=== PATIENT | female | born 1940 | race Caucasian/White ===

== ENCOUNTER 2022-03-26 05:06 | Observation (INO) ==
--- NOTE | 2022-02-22 08:47 | PAT Medication Instructions ---
Medication Instructions Date of Service February 22, 2022 Home Medications Neurvia 1 dose PO DAILY allopurinol 300 mg tablet 300 mg PO QAM amitriptyline 50 mg tablet 50 mg PO HS cholecalciferol (vitamin D3) 50 mcg (2,000 unit) tablet (Vitamin D3) 1,000 unit PO DAILY empagliflozin 10 mg tablet (Jardiance) 10 mg PO QAM furosemide 40 mg tablet (Lasix) 40 mg PO DIRECTED magnesium 250 mg tablet 250 mg PO DAILY metoprolol succinate 50 mg tablet,extended release 24 hr (Toprol XL) 50 mg PO QDD omega 9-imh-zoq-fish oil 100 mg-160 mg-1,000 mg capsule (Fish Oil) cap PO DAILY pilocarpine HCl 5 mg tablet (Salagen (pilocarpine)) 5 mg PO TID potassium chloride 10 mEq capsule,extended release 10 meq PO BID tramadol 50 mg tablet 50 mg PO QAM turmeric 400 mg capsule 400 mg PO DAILY zinc acetate 50 mg (zinc) capsule 50 mg PO DAILY ASK your prescriber and surgeon amitriptyline 50 mg tablet 50 mg PO HS STOP taking 2 weeks before surgery (or as soon as possible if surgery is within 2 weeks) Neurvia 1 dose PO DAILY omega 5-ynf-hrf-fish oil 100 mg-160 mg-1,000 mg capsule (Fish Oil) cap PO DAILY turmeric 400 mg capsule 400 mg PO DAILY STOP taking 3 days before surgery empagliflozin 10 mg tablet (Jardiance) 10 mg PO QAM STOP taking 24 hours before surgery pilocarpine HCl 5 mg tablet (Salagen (pilocarpine)) 5 mg PO TID DO NOT take the morning of surgery cholecalciferol (vitamin D3) 50 mcg (2,000 unit) tablet (Vitamin D3) 1,000 unit PO DAILY furosemide 40 mg tablet (Lasix) 40 mg PO DIRECTED magnesium 250 mg tablet 250 mg PO DAILY potassium chloride 10 mEq capsule,extended release 10 meq PO BID zinc acetate 50 mg (zinc) capsule 50 mg PO DAILY Take morning of surgery With a small sip of water, OTHERWISE NOTHING TO EAT OR DRINK AFTER MIDNIGHT: allopurinol 300 mg tablet 300 mg PO QAM tramadol 50 mg tablet 50 mg PO QAM Take evening before surgery metoprolol succinate 50 mg tablet,extended release 24 hr (Toprol XL) 50 mg PO QDD potassium chloride 10 mEq capsule,extended release 10 meq PO BID Other Notes If you have any questions please call us at [phone] or [phone] or [phone] or [phone]
--- NOTE | 2022-02-28 13:31 | Anesthesiology Consultation ---
Date of Service February 28, 2022 Assessment & Plan (1) Encounter for pre-operative examination: - awaiting cardiology clearance. - will attempt to obtain most recent pacemaker check report. - pacemaker [employer]. - Patient concerns for worsened neuropathy of legs, hands and left arm: general vs neuraxial anesthesia discussed with pt. She prefers planned neuraxial anesthesia given cardiac history and recent dental work. Pt states surgeon's office is aware of dental work. She denied additional questions or concerns at PAT visit today, plans to further discuss with anesthesiologist rosa HUITRON. She was advised to further follow-up with surgeon's office regarding any additional questions or concerns regarding the surgery itself. She verbalized understanding and agreement, denied additional questions or concerns. - limb restriction: right arm restriction d/t partial mastectomy; pt also experiences 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 d/t previous surgical complications; Do not use right arm. - cardiology 12/10/21: "...heart failure...dual chamber pacemaker...hypertension...underwent a heart catheterization 12/07/21 that showed normal hemodynamics and filling pressures with angiographically normal coronary arteries...only able to exercise for 2 minutes...nondiagnostic...not had any appreciable changes in her symptoms with the addition of the Jardiance...stable renal function and electrolytes...continue to have dyspnea with minimal exertion, improved with rest not present with rest...intermittently have sweats at times...stage C, NYHA III...will refer to pulmonology for further evaluation...pacemaker, continue routine interrogations..." Pt made aware optimization note will be sent to cardiology office for clearance. She denied questions or concerns. - Outpatient joint assessment: Patient is currently scheduled for inpatient pathway. If re-evaluated pending system levels during current pandemic/surgeon requests outpatient pathway, patient is not acceptable candidate for outpatient joint program from anesthesia standpoint. Chart Review Chart Review: Pending: Refer to Additional Notes / Consult section and Patient seen in Pre Admission Testing Teaching & Discussion Pre-Anesthesia Teaching/Discussion Notes: Instructed NPO after midnight before surgery, except medications with 15 cc of water. Medication instructions provided according to the PAT guidelines. History Surgery Operation Date: 03/26/22 07:00 Proposed Procedures p Right Total Knee Arthroplasty - Nioxn Lange MD Height/Weight Height: 5 ft 6.5 in Weight: 79.4 kg Allergies Allergy/AdvReac Type Severity Reaction Status Date / Time adhesive tape Allergy Intermediate Rash Verified 02/21/22 14:38 gabapentin Allergy Intermediate Gastrointestinal Verified 02/21/22 14:38 Upset Medications Home Medications Medication Instructions Recorded Confirmed Last Taken Neurvia 1 dose PO DAILY 02/21/22 02/21/22 Unknown allopurinol 300 mg tablet 300 mg PO QAM 02/21/22 02/21/22 Unknown amitriptyline 50 mg tablet 50 mg PO HS 02/21/22 02/21/22 Unknown cholecalciferol (vitamin D3) 50 1,000 unit PO DAILY 02/21/22 02/21/22 Unknown mcg (2,000 unit) tablet (Vitamin D3) empagliflozin 10 mg tablet 10 mg PO QAM 02/21/22 02/21/22 Unknown (Jardiance) furosemide 40 mg tablet (Lasix) 40 mg PO DIRECTED 02/21/22 02/21/22 Unknown magnesium 250 mg tablet 250 mg PO DAILY 02/21/22 02/21/22 Unknown metoprolol succinate 50 mg 50 mg PO QDD 02/21/22 02/21/22 Unknown tablet,extended release 24 hr (Toprol XL) omega 0-quh-rij-fish oil 100 cap PO DAILY 02/21/22 Unknown mg-160 mg-1,000 mg capsule (Fish Oil) pilocarpine HCl 5 mg tablet 5 mg PO TID 02/21/22 02/21/22 Unknown (Salagen (pilocarpine)) potassium chloride 10 mEq 10 meq PO BID 02/21/22 02/21/22 Unknown capsule,extended release tramadol 50 mg tablet 50 mg PO QAM 02/21/22 02/21/22 Unknown turmeric 400 mg capsule 400 mg PO DAILY 02/21/22 02/21/22 Unknown zinc acetate 50 mg (zinc) capsule 50 mg PO DAILY 02/21/22 02/21/22 Unknown Past Medical History Medical History (Updated 02/28/22 @ 14:01 by Lori Reed PA-C) CHF (congestive heart failure) EF 44%, following with [facility] cardiology, stage C, NYHA III GERD (gastroesophageal reflux disease) infrequent, stable per pt Gout HX: breast cancer right 2010 > surgical intervention > chemo/radiation-right arm limb restriction Hypertension controlled, stable per pt Limb alert care status right arm restriction d/t partial mastectomy; pt also experiences 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 d/t previous surgical complications; Do not use right arm Nausea and vomiting after administration of anesthetic agent denies needing scop patch Neuropathy hands and arms bilat, feet and legs Pacemaker pt states it was placed for "low blood pressure" Spritz > last checked within past 2 months Presence of bilateral breast implant Pulmonary nodules stable per recent CT lung Patient denies h/o stroke, seizures, heart attack, DM, blood clots or blood tra nsfusions. Exercise / Class Metabolic Activity III < 4 Walking/Shop/Light housework (currently using electric chair for stairs; occasional chest discomfort and occasional shortness of breath with usual activities; denies change or worsening; she states cardiology is aware of both symptoms) Past Family History Family History Sister Diabetes Brother Diabetes Past Surgical History Surgical History (Updated 02/28/22 @ 13:43 by Lori Reed PA-C) History of cardiac cath [facility] > approx 2 mos ago > no stents History of cataract surgery bilat History of colonoscopy History of esophagogastroduodenoscopy (EGD) History of hysterectomy History of partial mastectomy of right breast right arm restriction d/t partial mastectomy; pt also experiences 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 d/t previous surgical complications; Do not use right arm History of tooth extraction Hx of lymph node excision right side Hx of surgical procedure 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 Patient denies chest pain, shortness of breath, dyspnea on exertion, fever, chills, cough, wheezing, or palpitations. Physical Exam Vital Signs Vitals BP 106/80 P 90 TEMP 97.7 SP02 95% on RA RESP 18 Physical Full cervical extension range of motion without pain TMD 3.5 finger breadths Mallampati Score 2 Dentition: intact, three implants upper front with current temporary teeth in place and lower front veneers; denies chipped or loose teeth Lungs: normal respiratory effort. Clear throughout to auscultation, no adventitious breath sounds Cardiac: regular rate and rhythm, no murmurs noted Carotid arteries: negative bruit bilat Lab Results Anesthesia Preop Results Results Anesthesia Widget: WBC 5.52 K/ul (4.8-10.8) 02/28/22 Hgb 15.6 g/dl (12.0-16.0) 02/28/22 Hct 47.0 % (34.1-44.9) H 02/28/22 Plt 193 K/uL (130-400) 02/28/22 Na 140 mmol/L (136-145) 02/28/22 K 3.6 mmol/L (3.5-5.1) 02/28/22 Cl 99 mmol/L (98-107) 02/28/22 CO2 34 mmol/L (21-32) H 02/28/22 BUN 22 mg/dl (6-23) 02/28/22 Creat 0.90 mg/dl (0.6-1.2) 02/28/22 Glucose Level 160 mg/dl (70-99(Fasting)) H 02/28/22 PT 10.4 Seconds (9.0-12.0) 02/28/22 PTT 27.8 Seconds (21.0-31.0) 02/28/22 INR 1.0 (0.9-1.1) 02/28/22 Urine Color Yellow 02/28/22 Urine Appearance Clear (Clear) 02/28/22 Urine pH 6.0 (4.5-7.5) 02/28/22 Urine Specific [place] 1.014 (1.000-1.030) 02/28/22 Urine Protein Negative (Negative) 02/28/22 Urine Glucose (UA) 3+ (Negative) H 02/28/22 Urine Ketones Negative (Negative) 02/28/22 Urine Blood Negative (Negative) 02/28/22 Urine Nitrite Negative (Negative) 02/28/22 Urine Bilirubin Negative (Negative) 02/28/22 Urine Urobilinogen Negative (Negative) 02/28/22 Urine Leukocyte Esterase Negative (Negative) 02/28/22 Blood Type O Positive 02/28/22 Antibody Screen NEGATIVE 02/28/22 Testing Electrocardiogram Date: 02/28/22 Ventricular paced rhythm, rate 87 bpm Chest X-Ray Date: 02/28/22 No prior studies are available for comparison at the time of dictation. A 2-lead cardiac pacemaker is unchanged in position and partially obscures the left mid chest. The heart is enlarged. The pulmonary vasculature is noncongested. Nonspecific interstitial thickening is likely chronic. The lungs and pleural spaces are clear noting bibasilar scarring/atelectasis. There is no pneumothorax. The skeletal structures are osteopenic. The bony thorax appears intact. Surgical clips are noted in the right axilla. IMPRESSION: 1. Cardiomegaly and cardiac pacemaker without radiographic evidence of congestive failure. 2. No airspace consolidation or pleural effusion is identified. Stress Test Date: 11/19/21 Pharmacologic Moderate anterior, apical infarction, subsequent normal cardiac cath 12/07/21, see below EF 44% Cardiac Catheterization Date: 12/07/21 Left main: angiographically normal LAD: angiographically normal Cx: angiographically normal RCA: angiographically normal Other Testing CT lung 11/26/21 Stable small right lung nodules and axillary lymph nodes. No acute findings in the chest. COVID-19 Risk Screen Screening Information COVID-19 Screen Date: 02/28/22 Exposure 21 Days Family/Household +COVID Last 21 Days: No Exposure 10 Days Any COVID Exposure Last 10 Days: No Symptoms Last 10 Days Experienced COVID Sx Last 10 Days: No + COVID 0-90 Days COVID + in Last 0-90 Days: No
[2022-03-26] MEDS ORDERED: TRANEXAMIC ACID 1,000 MG **IV Intra-op IV SCH (06:00)
[2022-03-26] MEDS ORDERED: TRANEXAMIC ACID 1,000 MG **IV Pre-op IV SCH (06:00)
[2022-03-26] MEDS ORDERED: LR 500ML BOLUS, THEN 15ML/HR IV SCH (06:00)
[2022-03-26] MEDS ORDERED: LR 60ML/HR IV SCH (06:00)
[2022-03-26] MEDS ORDERED: CeleBREX 200 MG CAP PO SCH (06:00)
[2022-03-26] MEDS ORDERED: ROPIVACAINE 0.5% HCL/PF 150 MG, BUPIVACAINE 0.75% MPF 20 ML, EPINEPHrine 0.15 MG, Ketor... INFIL SCH (06:00)
[2022-03-26] MEDS ORDERED: Scopolamine 1 MG TDSY TD SCH (06:00)
[2022-03-26] MEDS ORDERED: ceFAZolin 2000MG 2,000 MG/15 ML SYR IV SCH (06:00)
[2022-03-26] MEDS ORDERED: ROPIVACAINE 0.5% 5 MG/ML 30 ML VIAL ONE (06:16)
[2022-03-26] MEDS ORDERED: BUPIVACAINE 0.5 % 5 MG/1 ML PF 10ML VIAL ONE (06:16)
[2022-03-26] MEDS ORDERED: LIDOCAINE 2% MPF LOCAL 5 ML VIAL INFIL ONE (06:25)
[2022-03-26] MEDS ORDERED: MIDAZOLAM HCL 1 MG/ML 2ML VIAL ONE (06:25)
[2022-03-26] MEDS ORDERED: PROPOFOL IV EMULSION 10 MG/ML 20 ML VIAL IV ONE ×3 (06:25→10:21)
--- NOTE | 2022-03-26 06:37 | History & Physical Bridge Note ---
Date of Service March 26, 2022 History & Physical Bridge Note I have examined the patient, reviewed the History & Physical and in the interval since the performance of the History & Physical I have noted the following changes of clinical significance: no changes noted Patient is aware of the risks, is asymptomatic, and tested negative for COVID- 19.
[2022-03-26] MEDS ORDERED: fentaNYL citrate 100 MCG/2 ML VIAL IV PRN (07:02)
[2022-03-26] MEDS ORDERED: ONDANSETRON INJ 2 MG/ML 2 ML VIAL IV PRN ×2 (07:02→10:45)
[2022-03-26] MEDS ORDERED: ePHEDrine sulfate 50 MG/ML AMP IV PRN (07:02)
[2022-03-26] MEDS ORDERED: ATROPINE SULFATE 0.1 MG/ML 10ML SYR IV PRN (07:02)
[2022-03-26] MEDS ORDERED: ORTHO JOINT ANESTHETIC ONE (07:11)
[2022-03-26] MEDS ORDERED: DEXAMETHASONE SOD INJ 4 MG/ML VIAL ONE (07:26)
--- NOTE | 2022-03-26 09:18 | Post Operative Brief Note ---
Immediate Post Op Note v1 Date of Surgery March 26, 2022 Pre & Post Diagnosis Operation Date: 03/26/22 07:00 Pre-Op Diagnosis: Right Knee Osteoarthritis Post-Op Diagnosis: Right Knee Osteoarthritis I identified the patient and participated in the time-out.: Yes Procedure Operation Date: 03/26/22 07:00 Actual Procedures p Right Total Knee Arthroplasty(Right) - Nixon Lange MD Surgeon Nixon Lange MD Manager Category Cristobal Moise PA-C (No fellow avail) Estimated Blood Loss 120 Findings Consistent with Post-Op Diagnosis Fluids 1200 cc Specimens Right knee contents Anesthesia Type MAC Spinal Regional Complications none
--- NOTE | 2022-03-26 09:19 | Operative Report ---
Post Operative Report Pre & Post Diagnosis Operation Date: 03/26/22 07:00 Pre-Op Diagnosis: Right Knee Osteoarthritis, valgus deformity Post-Op Diagnosis: Right Knee Osteoarthritis, valgus deformity I identified the patient and participated in the time-out.: Yes Procedure Operation Date: 03/26/22 07:00 Actual Procedures p Right Total knee replacement, imageless computer assisted navigation - Nixon Lange MD Surgeon Nixon Lange MD Derrick Worker Cristobal Moies PA-C (No fellow avail) Estimated Blood Loss 120 Findings See Below Examined Under Anesthesia: ROM -- There was 15 degrees to 120 degrees of flexion Ligamentous examination -- revealed stable [place], posterior drawer, varus and valgus stress at 15 and 30 degrees. [place] grade IV changes of Lateral and patellofemoral compartments, grade III changes Medial compartment. Fluids 1200 cc Specimens Right knee contents Anesthesia Type MAC Spinal Regional Complications none Indications This is a 82-year-old female who has clinical and radiographic findings consistent with osteoarthritis of the a right knee. I recommended that a right total knee replacement be performed. The patient understands the risks of surgery, which include but not limited to: bleeding, infection, re-operation, damage to nerves and arteries, continued knee pain, knee stiffness, DVT, and . The patient understands all of these instructions and explanations, all of his questions have been satisfactorily addressed and the patient has elected to proceed. Informed consent was signed. Description of Procedure IMPLANTS: 1. Femur: Triathlon #5 Right PS. 2. Tibia: Triathlon #4 [place]. 3. Insert: Triathlon #4 x 9 mm PS X3 poly. 4. Patella: Triathlon A32 x 10 mm X3 poly. 5. [place] cement. Cristobal Moise PA-C is assisting with positioning, retracting, and closure due to fellow not available. Procedure: The patient was taken to the Operating Room and placed in the supine position after spinal and adductor canal nerve block was administered. My initials and a multidisciplinary time-out were used to identify the right leg as the correct operative limb. A tourniquet was placed high in the thigh. Prior to the incision, 2 grams of intravenous Ancef were given. The right leg was then prepped and draped in a standard sterile fashion. An Esmarch was used to exsanguinate the leg and the tourniquet was inflated to 250 mmHg. The planned mid-line 20 cm incision was created exposing the extensor mechanism. The medial parapatellar arthrotomy was made and the patella was everted. The patella was addressed first. It was prepared by reaming from 24 mm down to 13 mm. An A32 button was found to fit best. The peg holes were made in the standard fashion. The femur was addressed next and using computer assisted OrthoAlign with 3 degrees of flexion and 0.5 degrees of valgus (As she was in 7 degrees of valgus pre-op), removing 10 mm in the standard fashion for the distal cut. The cut was made and the 4-in-1 cutting block for a size 5 femur was placed. These cuts and the cuts to place the box were made in the standard fashion. Our attention was then drawn to the tibia cut with using imageless computer assisted OrthoAlign, taking 2 mm from the lateral low side. A #4 Tibial baseplate fit well. A trial with a 9 mm spacer showed excellent stability in both flexion and extension, with good ligament balance, and thumbs free patellar tracking. Range of motion of 0-130 degrees. The tibial baseplate was prepped for the keel and stem. All components were removed. All surfaces were copiously irrigated prior to placement of the components. The femoral component followed by Tibial baseplate were cemented in place and the 9 mm X3 poly was placed. Next, the patellar button was placed using the same cement. Once the cement had cured, the range of motion and stability were unchanged.The tourniquet was deflated. Hemostasis was obtained. 90 ml of total knee cocktail were injected into the soft tissues and periosteum. The extensor mechanism was closed with 1-0 Vicryl and 0 Stratafix with the knee bent approximately 60 degrees in a standard fashion. The peritenon and deep fascia was closed with 2-0 Vicryl. The subcutaneous layer was closed with 3-0 Vicryl. The skin was closed with kenny. The limb was cleaned and dried. Xeroform, 4x4 dressing was placed over top followed by ABDs, sterile Webril, and a foot to thigh Jonathan bandage. The patient was then transferred to the Recovery Room in stable condition. The sponge and needle counts were correct. POST-OP INSTRUCTIONS: The patient will be WBAT. The patient will be admitted to the hospital. Labs will be obtained during the stay. DVT prophylaxis will included Eliquis for 6 weeks, TEDs, and mechanical foot pumps. The dressing will be changed prior to their discharge or postop day #2 and covered with a Silverlon dressing, whichever comes first as long as the incision as dry. I attest to the content of the Intraoperative Record and any orders documented therein. Any exceptions are noted below.
--- NOTE | 2022-03-26 09:29 | Operative Report ---
Post Operative Report Pre & Post Diagnosis Operation Date: 03/26/22 07:00 Pre-Op Diagnosis: Right Knee Osteoarthritis Post-Op Diagnosis: Right Knee Osteoarthritis I identified the patient and participated in the time-out.: Yes Procedure Operation Date: 03/26/22 07:00 Actual Procedures p Right Total Knee Arthroplasty(Right) - Nixon Lange MD Surgeon Nixon Lange M.D. Chart Picker Cristobal Moise PA-C (No fellow avail) Estimated Blood Loss 120 Findings Consistent with Post-Op Diagnosis Specimens bone and soft tissue Anesthesia Type MAC Spinal Regional Description of Procedure Patient was taken to the operating room, placed under general anesthesia. Time out performed, prepped and draped in routine sterile fashion. She was given 2gm IV Ancef for surgical prophylaxis. I was present during the entire case, please see Dr. Lange's operative report for further detail. I assisted with positioning, tissue retraction, trialing and implantation of implants, closure and dressings. Patient was awakened and taken to the recovery room in stable condition. I attest to the content of the Intraoperative Record and any orders documented therein. Any exceptions are noted below.
--- NOTE | 2022-03-26 10:12 | Anesthesiology Progress Note ---
Date of Service March 26, 2022 Anesthesia Post Procedure Vital Signs Vital Signs: Temp Pulse Pulse Resp BP Pulse Ox O2 Del Method 03/26/22 10:05 97.2 F L 64 20 126/75 94 Room Air 03/26/22 09:55 69 17 130/66 95 Room Air 03/26/22 09:45 71 18 127/68 94 Room Air 03/26/22 09:35 68 16 122/69 94 Room Air 03/26/22 09:26 96.8 F L 70 16 123/65 96 Oxymask 03/26/22 05:38 98.1 F 84 20 161/84 H 97 Room Air O2 Flow Rate 03/26/22 10:05 03/26/22 09:55 03/26/22 09:45 03/26/22 09:35 03/26/22 09:26 4 03/26/22 05:38 Transfer of Care Handoff Completed per policy Notes Mental Status: alert / awake / arousable and participated in evaluation Patient Amnestic to Procedure: Yes Nausea / Vomiting: adequately controlled Pain: adequately controlled Airway Patency, RR, SpO2: stable & adequate BP & HR: stable & adequate Hydration State: stable & adequate Neuraxial Anesthesia: was administered and sensory block is resolving Anesthetic Complications: no major complications apparent and Pt Satisfied with anesthetic care
[2022-03-26] MEDS ORDERED: MAGNESIUM HYDROXIDE SUSP 30 ML UDC PO PRN (10:45)
[2022-03-26] MEDS ORDERED: HYDROmorphone INJ 0.5 MG/0.5 ML SYR IV PRN (10:45)
[2022-03-26] MEDS ORDERED: NALOXONE HCL 0.4 MG/1 ML VIAL/CARP IV PRN (10:45)
[2022-03-26] MEDS ORDERED: traMADol HCL 50 MG TABLET PO PRN (10:45)
[2022-03-26] MEDS ORDERED: bisacodyL 10 MG SUPP PR PRN (10:45)
[2022-03-26] MEDS ORDERED: SODIUM CHLORIDE 0.9% 1000ML 1,000 ML IV SCH (10:45)
--- NOTE | 2022-03-26 10:47 | XRay Report ---
XR knee RT 1 or 2V routine HISTORY: 82 years-old Female Surgical Post Op right knee arthroplasty COMPARISON: 01/21/2022 TECHNIQUE: 2 views the right knee FINDINGS: Total joint arthroplasty with patellar resurfacing. Anterior midline skin kenny are present along w ith expected postoperative soft tissue swelling with deep tissue air. IMPRESSION: Total joint arthroplasty with expected postoperative changes. ACT 112: Negative or not required by law. The above report was generated using voice recognition software. It may contain grammatical, syntax o r spelling errors. Electronically signed by: Teddy Atkinson M.D. 03/26/2022 10:46 AM
--- NOTE | 2022-03-26 11:21 | Hospitalist Consultation ---
Date of Consultation March 26, 2022 Assessment & Plan (1) Osteoarthritis of left knee: s/p Right Total Knee Arthroplasty(Right) - Nixon Lange MD. EBL 120cc. Pain control/antitemetics, bowel regimen per primary service Ancef migdalia-operative abx Per primary, using eliquis 2.5mg BID for DVT prophylaxis (per patient, no prior hx DVT/PE) Decadron 8mg given, additional dose for tomorrow AM ordered If develops any shortness of breath/increased edema, will need dose of lasix as missed last night and not given this morning however asymptomatic. Agree NO further IVF. Monitor daily weight/I&O given her weight slightly up from dry Monitor labs in AM (2) CHF (congestive heart failure): EF 44%, following with [facility] cardiology, stage C, NYHA III Typically on lasix 80mg QAM, 40mgQPM, metoprolol 50mg, Jardiance 10mg daily (NO HX DM REPORTED) She states she DID NOT take dose last night and did not get this morning Lasix 40mg PO to be resumed for this evening Weight ~176, stated dry weight had been closer to 171lb in the past but has been stable in 175lb range over past month As above, additional diuretic only if needed, regular meds to be resumed this evening but is asymptomatic at this time and can hold off. Would avoid additional IVF post-op past what was already given. 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 Hospitalist service will follow along in AM Supervising Physician Co-Signing Physician Notes I personally saw and examined the patient. I verified all webber points and agree with Crissy Thomas PA-C with the following exceptions and/or additions: 82 year old female POD #0 right TKA. Pain increasingly post operatively as block is wearing off. Advised for her to discuss pain management with her surgeons if not under control. Appears to be NV intact distal to operation site. No shortness of breath, chest pain or dizziness O/E HS RRR, no murmurs, no JVD, Chest CTAB, Abdo SNT, trace pedal edema A/P Pain/VTE/Bowel management per surgery Appears euvolemic regarding CHF at the present time. Agree with no post op IV fluids and resuming her usual Lasix at this time since she has missed two doses I am more concerned about developing CHF than post operative hypotension at this time. Otherwise as above. History of Present Illness Reason for Consultation: med management Requesting Physician: Dr Lange Attending Physician: Nixon Lange MD History of Present Illness 82yo female with PMHx significant for HFpEF, HTN, HLD, Breast Ca, pacemaker, presented for RIGHT TKA with Dr Lange. Evaluated in room 306 post-op, doing well. States has some weakness in her RLE from nerve block, just got up from surgery. She notes she is able to still feel pressure, to alert of any issues. She notes she follows with [facility] in [place], hx pacemaker as well. Had not been utilizing much but notes she is about 90% pacer dependent currently. Typically on lasix 80mg QAM and 40mg QPM. She notes she did not take her dose last night as she didn't want to be up to pee and she didn't get her dose this morning. She notes her usual dry weight is closer to 171lb but over the past month with parties/birthday she has been closer to 175lb this month. She states her typical symptoms w/ exacerbation are shortness of breath and and cant breath with increased swelling. Currently 96-97% on room air and denying any of those symptoms. Discussed to alert nursing if these occur and we can use dose of lasix as needed sooner but waiting post-op. No additional fluids currently hanging and agree with such. She does have a history of breast cancer over 11 years ago s/p treatment. NEVER had DVT/PE. Primary service utilizing low dose eliquis for DVT prophylaxis. No fever/chills, chest pain, shortness of breath, abdominal pain, nausea, vomiting or dysuria reported. Allergies Allergy/AdvReac Type Severity Reaction Status Date / Time adhesive tape Allergy Intermediate Rash Verified 03/26/22 05:41 gabapentin Allergy Intermediate Gastrointestinal Verified 03/26/22 05:41 Upset Home Medications Medication Instructions Recorded Confirmed Type Neurvia 1 dose PO DAILY 02/21/22 03/26/22 History allopurinol 300 mg tablet 300 mg PO QAM 02/21/22 03/26/22 History amitriptyline 50 mg tablet 50 mg PO HS 02/21/22 03/26/22 History cholecalciferol (vitamin D3) 50 1,000 unit PO DAILY 02/21/22 03/26/22 History mcg (2,000 unit) tablet (Vitamin D3) empagliflozin 10 mg tablet 10 mg PO QAM 02/21/22 03/26/22 History (Jardiance) furosemide 40 mg tablet (Lasix) 40 mg PO DIRECTED 02/21/22 03/26/22 History magnesium 250 mg tablet 250 mg PO DAILY 02/21/22 03/26/22 History metoprolol succinate 50 mg 50 mg PO QDD 02/21/22 03/26/22 History tablet,extended release 24 hr (Toprol XL) omega 2-xga-qik-fish oil 100 1 cap PO DAILY 02/21/22 03/26/22 History mg-160 mg-1,000 mg capsule (Fish Oil) pilocarpine HCl 5 mg tablet 5 mg PO TID 02/21/22 03/26/22 History (Salagen (pilocarpine)) potassium chloride 10 mEq 10 meq PO BID 02/21/22 03/26/22 History capsule,extended release tramadol 50 mg tablet 50 mg PO QAM 02/21/22 03/26/22 History turmeric 400 mg capsule 400 mg PO DAILY 02/21/22 03/26/22 History zinc acetate 50 mg (zinc) capsule 50 mg PO DAILY 02/21/22 03/26/22 History Patient History Medical History CHF (congestive heart failure) EF 44%, following with [facility] cardiology, stage C, NYHA III GERD (gastroesophageal reflux disease) infrequent, stable per pt Gout HX: breast cancer right 2010 > surgical intervention > chemo/radiation-right arm limb restriction Hypertension controlled, stable per pt Limb alert care status right arm restriction d/t partial mastectomy; pt also experiences 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 d/t previous surgical complications; Do not use right arm Nausea and vomiting after administration of anesthetic agent denies needing scop patch Neuropathy hands and arms bilat, feet and legs Pacemaker pt states it was placed for "low blood pressure" Haload > last checked within past 2 months Presence of bilateral breast implant Pulmonary nodules stable per recent CT lung Surgical History History of cardiac cath [facility] [place] > approx 2 mos ago > no stents History of cataract surgery bilat History of colonoscopy History of esophagogastroduodenoscopy (EGD) History of hysterectomy History of partial mastectomy of right breast right arm restriction d/t partial mastectomy; pt also experiences 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 d/t previous surgical complications; Do not use right arm History of tooth extraction Hx of lymph node excision right side Hx of surgical procedure 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, benign, had severe nerve damage, had to get a follow up surgery for the nerves at [facility] Family History Sister Diabetes Brother Diabetes Social History Smoking Status: Never smoker Second Hand Exposure: No; Do You Dip or Chew Tobacco: No; Tobacco Cessation Education Requested by Patient: No Hx Alcohol Use: No Hx Substance Use: No Preferred Language: Slovak Communication Ability: Effective Manager Cardiac Required: No Beliefs That Will Affect Care: None Current Living Situation: Significant Other Other Information That Helps Us Care for You: No Feels Safe at Home: Yes Safety Concerns: Feels Safe At This Time Assistive Devices: Glasses Assistive Devices Comment: dental implants > temporary teeth in mouth on top Physical Exam Physical Exam: General: WD/WN elderly female sitting up in bed post op, NAD, fiance and daughter at bedside HEENT: head normocephalic, atraumatic, mmm, trachea midline Resp: CTAB, slightly diminished in the bases, FAINT expiratory wheezing no crackles and 96% on ROOM AIR Chest: pacemaker present CV: RRR, S1/S2, no significant murmur, NO increased LE edema, pulses palpable GI: +BS, soft/NT : NO NOVAK MSK/Neuro: follows commands no facial droop/slurred speech, CN intact grossly, dressing to RLE with CINDY wrap, weakness from nerve block still in place, sensation to pressure intact Psych: AOx3, pleasant and cooperative Results & Data Results & Data ([facility]) Vital Signs (Past 12 Hours) Vital Signs Temp Pulse Pulse Resp BP Pulse Ox O2 Del Method 03/26/22 11:05 36.6 C 63 16 128/74 96 Room Air 03/26/22 10:05 36.2 C L 64 20 126/75 94 Room Air 03/26/22 09:55 69 17 130/66 95 Room Air 03/26/22 09:45 71 18 127/68 94 Room Air 03/26/22 09:35 68 16 122/69 94 Room Air 03/26/22 09:26 36.0 C L 70 16 123/65 96 Oxymask 03/26/22 05:38 36.7 C 84 20 161/84 H 97 Room Air O2 Flow Rate 03/26/22 11:05 03/26/22 10:05 03/26/22 09:55 03/26/22 09:45 03/26/22 09:35 03/26/22 09:26 4 03/26/22 05:38 Laboratory Results 03/26/22 Range/Units Unknown SARS-CoV-2, RNA, NAAT NEGATIVE (NEGATIVE) Diagnostic Findings Knee X-Ray 03/26/22 09:43 XR knee RT 1 or 2V routine HISTORY: 82 years-old Female Surgical Post Op right knee arthroplasty COMPARISON: 01/21/2022 TECHNIQUE: 2 views the right knee FINDINGS: Total joint arthroplasty with patellar resurfacing. Anterior midline skin kenny are present along with expected postoperative soft tissue swelling with deep tissue air. IMPRESSION: Total joint arthroplasty with expected postoperative changes. ACT 112: Negative or not required by law. The above report was generated using voice recognition software. It may contain grammatical, syntax or spelling errors. Electronically signed by: Teddy Atkinson M.D. 03/26/2022 10:46 AM PG Care Time/CCT Total # of Minutes Spent Total Time Spent with Patient: Total time spent is greater than 50% in coordination of care (as documented) at patient's floor/unit and/or counseling patient: Coding Level of Care Code INP/OBS CONSULT LVL 3, 45 MIN Diagnoses Osteoarthritis of left knee M17.12 CHF (congestive heart failure) I50.9 HX: breast cancer Z85.3 Hypertension I10 Pacemaker Z95.0 Pulmonary nodules R91.8
[2022-03-26] MEDS: PILOCARPINE HCL 5 MG TABLET PO SCH ×2 (13:48→20:04)
[2022-03-26] MEDS: oxyCODONE HCL IR 5 MG TAB (IMMEDIATE RELEASE) PO PRN ×2 (14:02→22:38)
[2022-03-26] MEDS: Scopolamine CHECK PATCH PLACEMENT SCH ×2 (15:30→23:39)
[2022-03-26] MEDS: ceFAZolin 2000MG 2,000 MG/15 ML SYR IV SCH ×2 (15:56→22:39)
[2022-03-26] MEDS ORDERED: FUROSEMIDE 40 MG TAB PO SCH (16:30)
[2022-03-26] MEDS ORDERED: METOPROLOL SUCC 50MG EXT REL TAB PO SCH (16:30)
[2022-03-26] MEDS: FERROUS SULFATE 325 MG TAB PO SCH (17:26)
[2022-03-26] MEDS: APIXABAN 2.5 MG TAB PO SCH (20:04)
[2022-03-26] MEDS: POTASSIUM CHLORIDE 10 MEQ TABCR PO SCH (20:05)
[2022-03-26] MEDS: CeleBREX 200 MG CAP PO SCH (20:06)
[2022-03-26] MEDS: DOCUSATE SODIUM 100 MG CAP PO SCH (20:06)
[2022-03-26] MEDS: ASCORBIC ACID 500 MG TAB PO SCH (20:07)
[2022-03-26] MEDS ORDERED: MELATONIN 3 MG TAB PO PRN (20:13)
[2022-03-26] MEDS ORDERED: SENNA 8.6 MG TAB PO SCH (21:00)
[2022-03-26] MEDS ORDERED: AMITRIPTYLINE HCL 50 MG TAB PO SCH (21:00)
[2022-03-27 07:27] LABS: Hematocrit (blood only) 35.4 % (37.0-47.0); Hemoglobin 11.8 g/dl (12.0-16.0); Mean Corpuscular Hemoglobin 30.2 pg (25.0-34.0); Mean Corpuscular Hgb Conc 33.3 g/dL (32.0-36.0); Mean Corpuscular Volume 90.5 fL (80.0-100.0); Mean Platelet Volume 9.8 fL (9.4-12.4); Platelet Count 157 K/uL (130-400); RDW Coefficient of Variation 14.5 % (11.5-14.5); RDW Standard Deviation 47.9 fL (36.4-46.3); Red Blood Count 3.91 M/uL (4.20-5.40); White Blood Count 9.75 K/ul (4.8-10.8)
[2022-03-27 07:36] LABS: BUN Creatinine Ratio 28.4 (10-20); Calcium 8.8 mg/dl (8.5-10.1); Creatinine Clr Calc Pharmacy 66.2 ml/min; Est GFR (African American) 88.7 ml/min; Est GFR (Non-African American) 76.5 ml/min; Magnesium 1.8 mg/dl (1.7-2.4); Potassium 4.5 mmol/L (3.5-5.1)
--- NOTE | 2022-03-27 07:51 | Hospitalist Progress Note ---
Date of Service March 27, 2022 Assessment & Plan (1) Osteoarthritis of left knee: Plan: Post op day #1 -s/p Right Total Knee Arthroplasty - Dr. Nixon Lange MD. EBL 120cc. Pain control/antitemetics, bowel regimen per primary service Ancef migdalia-operative abx Per primary, using eliquis 2.5mg BID for DVT prophylaxis (per patient, no prior hx DVT/PE) Decadron 8mg given, additional dose given this AM (2) CHF (congestive heart failure): Plan: EF 55%, following with [facility] cardiology, stage C, NYHA II Typically on lasix 80mg QAM, 40mgQPM, metoprolol 50mg, Jardiance 10mg daily (NO HX DM REPORTED) Lasix was resumed last evening Weight ~176, stated dry weight had been closer to 171lb in the past but has been stable in 175lb range over past month no SOB, Dyspnea and no swelling in bilateral ankles Monitor daily weights/I&O/volume status in AM (3) HX: breast cancer: Plan: right 2010 > surgical intervention > chemo/radiation-right arm limb restriction s/p bilateral implants no issues since (4) Hypertension: Plan: BP stable 109/72 Remains on metoprolol, lasix as outlined above (5) Pacemaker: Plan: s/p to SSS (6) Pulmonary nodules: Plan: outpt f/u for known nodules Plan Thank you for allowing hospitalist service to participate in the care of Ms Almanza. Patient is being discharged to home. Patient to follow up with ortho and her PCP Admission and Anticipated Discharge Date Admission Date: March 26, 2022 Subjective Patient is post op day#1 s/p right total knee with EBL 120cc. Yesterday evening Lasix 40mg was restarted. Patient take 80 mg in AM and 40 mg in PM of lasix. Patient has no complaints today and is hoping to be discharged home. She deneis any chest pain, SOB, dyspnea, abdominal pain or N/V. She is passing flatus but no BM. Review of Systems Review of Systems: All ROS negative unless stated above. Physical Exam Constitutional: Patient is sitting up in recliner in NAD Neck: trachea midline, no thyromegaly Respiratory: normal respiratory effort, lungs clear to auscultation Cardiovascular: RRR, no murmur, no edema Gastrointestinal (Abdomen): normal bowel sounds, soft, nontender, no hepatosplenomegaly Neurologic: PERRL, EOMI, accommodation nl, no face palsy, no dysarthria Psychiatric: A+Ox3, euthymic affect Results & Data Results & Data ([facility]) Vital Signs (Past 12 Hours) Vital Signs Temp Pulse Resp BP Pulse Ox O2 Del Method 03/27/22 07:32 36.8 C 78 17 109/72 96 Room Air 03/27/22 02:48 36.5 C 71 16 107/64 95 Room Air 03/26/22 22:37 36.5 C 66 16 106/64 95 Room Air 03/26/22 20:00 36.5 C 73 16 115/72 94 Room Air Laboratory Results Abnormal lab results 03/27/22 03/27/22 Range/Units 06:43 06:43 RBC 3.91 L (4.20-5.40) M/uL Hgb 11.8 L (12.0-16.0) g/dl Hct 35.4 L (37.0-47.0) % RDW Std Deviation 47.9 H (36.4-46.3) fL BUN/Creatinine Ratio 28.4 H (10-20) Glucose 125 H (70-99(Fasting)) mg/dl PG Care Time/CCT Total # of Minutes Spent Total Time Spent with Patient: Total time spent is greater than 50% in coordination of care (as documented) at patient's floor/unit and/or counseling patient: Coding Level of Care Code 74801 SUB INP/OBS CARE 03/20MIN Diagnoses Osteoarthritis of left knee M17.12 CHF (congestive heart failure) I50.32 Heart failure chronicity: chronic Heart failure type: diastolic HX: breast cancer Z85.3 Hypertension I10 Pacemaker Z95.0 Pulmonary nodules R91.8 (1) CHF (congestive heart failure) Heart failure chronicity: chronic Heart failure type: diastolic Qualified Code(s): I50.32 - Chronic diastolic (congestive) heart failure
[2022-03-27] MEDS ORDERED: dexAMETHasone 4 MG TAB PO SCH (08:00)
[2022-03-27] MEDS: APIXABAN 2.5 MG TAB PO SCH (08:02)
[2022-03-27] MEDS: PILOCARPINE HCL 5 MG TABLET PO SCH (08:02)
[2022-03-27] MEDS: CeleBREX 200 MG CAP PO SCH (08:02)
[2022-03-27] MEDS: POTASSIUM CHLORIDE 10 MEQ TABCR PO SCH (08:02)
[2022-03-27] MEDS: ASCORBIC ACID 500 MG TAB PO SCH (08:02)
[2022-03-27] MEDS: FERROUS SULFATE 325 MG TAB PO SCH (08:02)
[2022-03-27] MEDS: DOCUSATE SODIUM 100 MG CAP PO SCH (08:03)
[2022-03-27] MEDS: Scopolamine CHECK PATCH PLACEMENT SCH (08:03)
[2022-03-27] MEDS ORDERED: [UNRECOGNIZED DRUG - OTHER] PO SCH (09:00)
[2022-03-27] MEDS ORDERED: FUROSEMIDE 40 MG TAB PO SCH (09:00)
[2022-03-27] MEDS ORDERED: EMPAGLIFLOZIN 10 MG TAB PO SCH (09:00)
[2022-03-27] MEDS ORDERED: allopurinoL 300 MG TAB PO SCH (09:00)
[2022-03-27] MEDS ORDERED: MAGNESIUM OXIDE 400 MG TAB PO SCH (09:00)
[2022-03-27] MEDS ORDERED: NON-FORMULARY MEDICATION (Zinc Acetate 50 mg (zinc) Capsule) PO SCH (09:00)
[2022-03-27] MEDS ORDERED: CHOLECALCIFEROL 1,000 UNITS 25 MCG TAB PO SCH (09:00)
[2022-03-27] MEDS ORDERED: MULTIVITAMIN TAB PO SCH (09:00)
[2022-03-27] MEDS: oxyCODONE HCL IR 5 MG TAB (IMMEDIATE RELEASE) PO PRN (09:06)
--- NOTE | 2022-03-27 11:14 | Orthopedic Progress Note ---
Date of Service March 27, 2022 Assessment & Plan (1) Osteoarthritis of left knee: Plan: POD1 s/p total knee arthroplasty WBAT with walker PT/OT Diet - regular Frequently ice and elevate with blankets stacked under ankle DVT prophylaxis: Eliquis 2.5mg twice a day x 6 weeks, TEDS x 3 weeks, foot pumps while in hospital Pain control: Tylenol 1000mg q 8hrs, oxycodone 5-10mg q4-6 hrs for moderate pain Vitamin C and Iron supplementation BID x 2 weeks Dressing: changed to silverlon dressing that patient can leave in-tact until f/u Discharge home with home health x 2 weeks Follow up as scheduled with [facility] in 2 weeks Pt deemed stable for discharge today Admission and Anticipated Discharge Date Admission Date: March 26, 2022 Subjective Pt was seen and examined bedside. POD #1 s/p RTKA. Pt was admitted last night for observation. No major events over night. Vitals are stable. Labs unremarkable. X-rays show normal post operative changed. Pt reports they are doing well and pain is controlled. They are tolerating PO intake and voiding adequate amounts. Working well with PT/OT. Pt denies F/C, N/V/D, SOB, CP. Pt deemed medically stable and ready for discharge. Physical Exam Physical Exam: General: Pt laying in hospital bed AA&O, in NAD, calm and cooperative during exam Lower Extremity: Dressing in tact and not saturated. Incisions clean, dry and with minimal drainage and no surrounding erythema, warmth or purulent drainage. Mary in tact. Pt has full ROM of ankle and all 5 digits. Pt has 5/5 strength with resisted DF/PF. SLR in tact. Calf supple and non tender. NVI with sensation to light touch distally and good distal pulses present. Lower extremity noted to have good color and temperature with no signs of vascular or lymphatic insufficiency. Dressing taken down and Silverlon dressing placed. Results & Data ([facility]) Vital Signs (Past 12 Hours) Vital Signs Temp Pulse Pulse Resp BP Pulse Ox O2 Del Method 03/27/22 10:34 36.8 C 76 78 17 109/72 96 03/27/22 07:32 36.8 C 78 17 109/72 96 Room Air 03/27/22 02:48 36.5 C 71 16 107/64 95 Room Air Laboratory Results 03/27/22 03/27/22 03/27/22 Range/Units 06:43 06:43 06:43 WBC 9.75 (4.8-10.8) K/ul RBC 3.91 L (4.20-5.40) M/uL Hgb 11.8 L (12.0-16.0) g/dl Hct 35.4 L (37.0-47.0) % MCV 90.5 (80.0-100.0) fL MCH 30.2 (25.0-34.0) pg MCHC 33.3 (32.0-36.0) g/dL RDW Std Deviation 47.9 H (36.4-46.3) fL RDW Coeff of Megan 14.5 (11.5-14.5) % Plt Count 157 (130-400) K/uL MPV 9.8 (9.4-12.4) fL Sodium 138 (136-145) mmol/L Potassium 4.5 (3.5-5.1) mmol/L Chloride 103 (98-107) mmol/L Carbon Dioxide 30 (21-32) mmol/L Anion Gap 5 (3-11) BUN 21 (6-23) mg/dl Creatinine 0.74 (0.6-1.2) mg/dl Est Cr Clr Drug Dosing 66.2 ml/min Est GFR ( Amer) 88.7 ml/min Est GFR (Non-Af Amer) 76.5 ml/min BUN/Creatinine Ratio 28.4 H (10-20) Glucose 125 H (70-99(Fasting)) mg/dl Calcium 8.8 (8.5-10.1) mg/dl Magnesium 1.8 (1.7-2.4) mg/dl Vitamin B12 720 (180-914) pg/ml
--- NOTE | 2022-03-27 11:32 | Discharge Summary ---
Date of Service March 27, 2022 Admission HPI Per Admitting Provider Pt was seen and examined bedside. POD #1 s/p right total arthroplasty. Pt was admitted last night for observation. No major events over night. Vitals are stable. Labs unremarkable. X-rays show normal post operative changed. Pt reports they are doing well and pain is controlled. They are tolerating PO intake and voiding adequate amounts. Working well with PT/OT. Pt denies F/C, N/V/D, SOB, CP. Pt deemed medically stable and ready for discharge. Principal Diagnosis Right knee primary osteoarthritis s/p right total knee arthroplasty Discharge Exam General: Pt laying in hospital bed AA&O, in NAD, calm and cooperative during exam Lower Extremity: Dressing in tact and not saturated. Incisions clean, dry and with minimal drainage and no surrounding erythema, warmth or purulent drainage. [place] in tact. Pt has full ROM of ankle and all 5 digits. Pt has 5/5 strength with resisted DF/PF. SLR in tact. Calf supple and non tender. NVI with sensation to light touch distally and good distal pulses present. Lower extremity noted to have good color and temperature with no signs of vascular or lymphatic insufficiency. Dressing taken down and Silverlon dressing placed. Discharge Data Allergies Allergy/AdvReac Type Severity Reaction Status Date / Time adhesive tape Allergy Intermediate Rash Verified 03/26/22 05:41 gabapentin Allergy Intermediate Gastrointestinal Verified 03/26/22 05:41 Upset Consultations 03/26/22 10:45 Consult Hospitalist Routine Procedures Performed Operation Date: 03/26/22 07:00 Actual Procedures p Right Total Knee Arthroplasty(Right) - Nixon Lange MD Ordered Studies 03/26/22 05:00 US - OR guided needle placemen Routine Hospital Course (1) Osteoarthritis of left knee: POD1 s/p total knee arthroplasty WBAT with walker PT/OT Diet - regular Frequently ice and elevate with blankets stacked under ankle DVT prophylaxis: Eliquis 2.5mg twice a day x 6 weeks, TEDS x 3 weeks, foot pumps while in hospital Pain control: Tylenol 1000mg q 8hrs, oxycodone 5-10mg q4-6 hrs for moderate pain Vitamin C and Iron supplementation BID x 2 weeks Dressing: changed to silverlon dressing that patient can leave in-tact until f/u Discharge home with home health x 2 weeks Follow up as scheduled with [facility] in 2 weeks Pt deemed stable for discharge today POD1 Total Time Total Time Spent Total Time Spent (In Minutes): 45 minutes Discharge Plan Discharge Items Patient Disposition: Home - Self-Care Reason For Visit: Right Knee Osteoarthritis Discharge Diagnosis: Right knee osteoarthritis Activity: Per Instructions section Non-emergency contact: Surgeon Call non-emergency contact if: you have any medication questions, your temperature is above 101.5, your wound has increased redness, your wound has increased drainage and your wound pain has increased Follow-up/Referrals: Tremayne Hung MD [Primary Care Provider] - Renetta Leonardo PA-C [Physician Fiber Optics Technician] - 04/08/22 11:15 am Diet: Regular Addtl Attending Provider Instructions: ORTHOPEDIC DISCHARGE INSTRUCTIONS -Weight bearing as tolerated with walker to assist in ambulation -Home health/PT x 2 weeks. You will receive home exercises to do on your own for the first two weeks from home PT. Please do these exercises 3 times a day. -Frequently ice, at least 20 minutes 5 times a day. -Elevate operative leg above your heart with pillows/blankets underneath your ankle, never under your knee. This helps to keep the knee in extension and prevent a flexion contracture. -You may shower on Post op Day 3. Leave Silverlon dressing in tact until follow up appt in 2 weeks. Your dressing is water-resistant, meaning you can shower with it on as long as it is in-tact. Letting some running water run over top of it from the shower is okay. You cannot submerge your incision in water. No baths, hot tubs or swimming pools. Keep dressing clean and dry. If your dressing starts to peel off or gets moisture under it after 7 days, home health nurse may reinforce as needed. -DVT prophylaxis: Eliquis 2.5mg twice a day for 6 weeks, RADHA compression stockings for 3 weeks -Pain control: oxycodone 5mg every 4-6 hours as needed, Tylenol 500-1000mg every 8 hours -To promote healing, please take 500mg Vitamin C twice a day with meals x 2 weeks and Iron 325 mg twice a day with meals x 2 weeks -While on narcotic pain medication and iron supplement, we recommend you take a stool softener to prevent constipation -Follow up as scheduled in 2 weeks with [facility] for post op evaluation and Zip-line removal. Please call our office sooner @ [phone] if you have any questions or concerns Pending Studies at Discharge: No Stand-Alone Forms: [facility], Smoking Cessation Medications and DC Order Prescriptions: New oxycodone 5 mg Tablet 5 mg PO Q4H PRN (Reason: pain) Qty: 18 0RF Eliquis 2.5 mg Tablet 2.5 mg PO BID 42 Days Qty: 84 0RF Continued furosemide [Lasix] 40 mg Tablet 40 mg PO DIRECTED pilocarpine HCl [Salagen (pilocarpine)] 5 mg Tablet 5 mg PO TID potassium chloride [Micro-K] 10 mEq Capsule, Extended Release 10 meq PO BID metoprolol succinate [Toprol XL] 50 mg Tablet Extended Release 24 Hr 50 mg PO QDD tramadol 50 mg Tablet 50 mg PO QAM amitriptyline 50 mg Tablet 50 mg PO HS allopurinol 300 mg Tablet 300 mg PO QAM Jardiance 10 mg Tablet 10 mg PO QAM zinc acetate 50 mg (zinc) Capsule 50 mg PO DAILY magnesium 250 mg Tablet 250 mg PO DAILY cholecalciferol (vitamin D3) [Vitamin D3] 50 mcg (2,000 unit) Tablet 1,000 unit PO DAILY Fish Oil 100-160-1,000 mg Capsule 1 cap PO DAILY turmeric 400 mg Capsule 400 mg PO DAILY Neurvia 1 dose PO DAILY Discharge Orders: Discharge Order (Routine); Ordered 03/27/22 Ordered By: Renetta Leonardo Admission Data Admit Date/Time: 03/26/22 09:43 Attending Provider: Nixon Lange Admit Provider: Nixon Lange Primary Care Provider: Tremayne Hung Other Providers: Ace Badillo Other Interventions: Discharge Summary Assessment (RN) Last Done: 03/27/22 10:34
== END 2022-03-27 13:01 | disposition home health service (06) ==
LOC: ASU 05:06 → 3E 05:06